=== PATIENT | male | born 1960 | race Hispanic/Latino ===

== ENCOUNTER 2016-10-20 11:52 | Emergency (ER) | payer OTHER ==
[~2016-10-20] VITALS: Ht 165.1 cm; Wt 70.0 kg
[2016-10-20] MEDS ORDERED: UNKNOWN BP MED (12:09)
[2016-10-20] MEDS ORDERED: AMBIEN5 MG PO (12:09)
[2016-10-20] MEDS ORDERED: CLONAZEPAM0.5 MG PO (12:09)
[2016-10-20] MEDS ORDERED: CLONAZEPAM0.5 M1 PO (12:20)
[2016-10-20 12:28] VITALS: BP 166/113
== END 2016-10-20 12:38 | disposition home or self-care (01) | DRG 880 ==
LOC: ED 11:52
DX: F41.9 Anxiety disorder, unspecified (principal); I10 Essential (primary) hypertension; J45.909 Unspecified asthma, uncomplicated; R73.03 Prediabetes